=== PATIENT | female | born 1975 | race Caucasian/White ===

== ENCOUNTER 2019-09-27 14:31 | Emergency (ER) | payer OTHER, SELFPAY ==
[2019-09-27 14:46] VITALS: BP 118/87; PULSE 60; RESP 16; TEMP 36.6; O2SAT 100
--- NOTE | 2019-09-27 14:50 | ED.URI ---
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 Patient started to take Tylenol and ibuprofen was sent home from work. Related Data Home Medications Medication Instructions Recorded Confirmed hydrochlorothiazide 25 mg PO DAILY 09/27/19 09/27/19 levocetirizine [Xyzal] 5 mg PO DAILY 09/27/19 09/27/19 nebivolol [Bystolic] 10 mg PO DAILY 09/27/19 09/27/19 omeprazole magnesium [Prilosec OTC] 20 mg PO DAILY 09/27/19 09/27/19 potassium chloride 10 meq PO BID 09/27/19 09/27/19 simvastatin 20 mg PO DAILY 09/27/19 09/27/19 Allergies Allergy/AdvReac Type Severity Reaction Status Date / Time cefaclor Allergy Mild HIVES Verified 09/27/19 14:56 Sulfa (Sulfonamide Allergy Mild HIVES Verified 09/27/19 14:56 Antibiotics) Review of Systems Review of Systems: Narrative: CONSTITUTIONAL: D reports fever, chills, or sweats. EYES: Denies visual changes, redness, or discharge. ENT: Reports rhinorrhea, congestion, sore throat, or otalgia. CARDIOVASCULAR:Denies chest pain, palpitations, or edema. RESPIRATORY: Reports cough or dyspnea. GASTROINTESTINAL: Denies abdominal pain, nausea, vomiting, or diarrhea. GENITOURINARY: Denies dysuria or hematuria. SKIN:[Denies rash or itching. MUSCULOSKELETAL:Denies back pain, joint pain, or myalgia. NEUROLOGIC: Denies headache, numbness, or weakness. PSYCHIATRIC:Denies anxiety or depression PMFSH Social History Social History Gender identity (if verbalized by the patient): Female Comments At time as signature, I have reviewed and agree with nursing past medical, social, surgical and family history. Please see nursing chart for further information. There is no relevant family history pertinent to the presenting complaint. Exam Narrative: Exam Narrative: GENERAL:Well-appearing, well-nourished, and in no acute distress. Malaise HEAD:Normocephalic, atraumatic. EYES: PERRLA and EOMI. ENT: Nares clear, no rhinorrhea or epistaxis. Mucous membranes moist. Pharyngeal erythema postnasal drainage NECK: Supple. CHEST: Clear to auscultation. No respiratory distress. HEART: Regular rate and rhythm. No murmur heard. Normal peripheral pulses. ABDOMEN: Soft, nontender, nondistended, normal active bowel sounds. EXTREMITIES: Normal range of motion. No edema. SKIN: Warm, dry, no rash. NEURO: No focal deficits. Alert and oriented x3. Course Vital Signs Vital signs: Vital Signs Temperature 97.9 F 09/27/19 14:46 Pulse Rate 60 09/27/19 14:46 Respiratory Rate 16 09/27/19 14:46 Blood Pressure 118/87 09/27/19 14:46 Pulse Oximetry 100 09/27/19 14:46 Temperature 97.9 F 09/27/19 14:46 Pulse Rate 60 09/27/19 14:46 Respiratory Rate 16 09/27/19 14:46 Blood Pressure 118/87 09/27/19 14:46 Pulse Oximetry 100 09/27/19 14:46 MDM - URI/Sore Throat Lab Data Labs: Influenza A Screen Negative Reference Range: Negative Influenza B Screen Negative Reference Range: Negative Strep Screen Presumptive Negative *(Reference Range: Negative)* Discharge Plan Discharge Clinical Impression: Influenza-like illness Patient Disposition: Home, Self-Care Condition: Stable Instructions: Antibiotic Form, Influenza (ED) Additional Instructions: Viral illness may last between 7-12days; antibiotic is NOT recommended at this time. Recommend antihistamine such as Benadryl at night time and Claritin/Zyrtec/Sharon during the day Also, recommend symptomatic treatment includes: rest, fluids, and increase humidity of the air at home. Recommend Acetaminophen or nonsteroidal anti-inflammatory agents (NSAIDs) as directed in the bottle to reduce fever and
== END 2019-09-27 15:26 | disposition home or self-care (01) ==
PROVIDERS: Emergency Provider Nurse Practitioner Family
DX: J02.9 Acute pharyngitis, unspecified (principal); R51 Headache; J34.89 Other specified disorders of nose and nasal sinuses; R50.9 Fever, unspecified; E78.00 Pure hypercholesterolemia, unspecified; I10 Essential (primary) hypertension; K21.9 Gastro-esophageal reflux disease without esophagitis
CPT/HCPCS: 87081; 87804; 87880; 99213; G0463

== ENCOUNTER 2019-12-30 09:04 | Emergency (ER) | payer OTHER, SELFPAY ==
[2019-12-30 09:10] VITALS: BP 130/78; PULSE 62; RESP 16; TEMP 36.6; O2SAT 100
--- NOTE | 2019-12-30 09:19 | ED.GENADULT ---
HPI - General Adult General Chief complaint: Upper Respiratory Infection Stated complaint: sinus pressure Time Seen by Provider: 12/30/19 09:19 Source: patient and RN notes reviewed Mode of arrival: ambulatory Limitations: no limitations History of Present Illness HPI narrative: 44-year-old presents with upper respiratory infection, some facial congestion, facial pressure, and intermittent headache (not the worst of her life) for the past 14 days. Flonase and Zyrtec without relief. Symptoms increased over the last 24-48 hours. No facial swelling. Denies cough. Intermittent nasal congestion and rhinorrhea. Denies sore throat. No high fevers, drooling, neck or throat swelling. No voice change. No nausea, vomiting, or abdominal pain. Tolerating liquids well. Denies chills, dyspnea, difficulty swallowing, jaw pain, dental pain, foreign body sensation, and rash. No chest pain or shortness of breath. Denies being , LMP had endometrial ablation. The patient reports she have not been diagnosed with COVID-19. The patient reports she is not waiting for the results of a COVID-19 lab test. The patient reports she do not have fever, chills, weakness, fatigue, myalgia, or facial swelling. The patient reports she do not have a new or worsening cough or shortness of breath. Denies chest pain. The patient reports she do not have any sore throat, nausea, vomiting, abdominal pain, and diarrhea. Denies recent traveling. Denies concerns for COVID-19 or exposures been home since [id number] order except for essential household needs, working, and return home. At this time, patient is not suspected of having COVID-19. Some parts of this dictation were generated by voice recognition software and may contain typographical and/or grammatical inaccuracies. Related Data Home Medications Medication Instructions Recorded Confirmed hydrochlorothiazide 25 mg PO DAILY 09/27/19 09/27/19 nebivolol [Bystolic] 10 mg PO DAILY 09/27/19 09/27/19 omeprazole magnesium [Prilosec OTC] 20 mg PO DAILY 09/27/19 09/27/19 potassium chloride 10 meq PO BID 09/27/19 09/27/19 simvastatin 20 mg PO DAILY 09/27/19 09/27/19 cetirizine [Zyrtec] 10 mg PO DAILY 12/30/19 12/30/19 fluticasone propionate [Flonase 1 spray INTRANASAL BID 12/30/19 12/30/19 Allergy Relief] meloxicam 12/30/19 Allergies Allergy/AdvReac Type Severity Reaction Status Date / Time cefaclor Allergy Mild HIVES Verified 09/27/19 14:56 Sulfa (Sulfonamide Allergy Mild HIVES Verified 09/27/19 14:56 Antibiotics) Review of Systems Review of Systems: Narrative: CONSTITUTIONAL: Denies fever, chills, sweats. EYES: Denies visual changes, redness, discharge. ENT: Complains of rhinorrhea, congestion, facial congestion and pressure. Denies sore throat, otalgia. CARDIOVASCULAR: Denies chest pain, palpitations, edema. RESPIRATORY: Denies dyspnea, wheezing, cough. GASTROINTESTINAL: Denies abdominal pain, nausea, vomiting, diarrhea. GENITOURINARY: Denies dysuria, hematuria, abnormal discharge SKIN: Denies rash or itching. MUSCULOSKELETAL: Denies acute back pain, joint pain, or myalgia. NEUROLOGIC: Denies numbness, or focal weakness. Complains of intermittent NORIEGA. PSYCHIATRIC: Denies anxiety or depression. All other systems reviewed & are unremarkable except as noted in HPI and below. [facility] Past Medical History Medical History (Updated 12/30/19 @ 09:31 by PAIGE Snell) History of gastroesophageal reflux (GERD) Hypercholesteremia Hypertension Surgical History Surgical History (Updated 12/30/19 @ 09:29 by PAIGE Snell) History of dental surgery History of endometrial ablation History of knee surgery RT ACL History of shoulder surgery LT AC separation History of tonsillectomy Family History Family History (Updated 12/30/19 @ 09:30 by PAIGE Snell) Father Hypertension Mother Hypertension Social History Social History (Updated 12/30/19 @ 09:30 by
== END 2019-12-30 09:46 | disposition home or self-care (01) ==
PROVIDERS: Emergency Provider Nurse Practitioner Family
DX: J01.00 Acute maxillary sinusitis, unspecified (principal); I10 Essential (primary) hypertension
CPT/HCPCS: 99213; G0463

== ENCOUNTER 2022-05-03 13:23 | Emergency (ER) | payer OTHER, SELFPAY ==
[2022-05-03 13:42] VITALS: BP 135/88; PULSE 67; RESP 16; TEMP 36.3; O2SAT 100
[2022-05-03 14:01] VITALS: BP 135/88; PULSE 67; RESP 16; TEMP 36.3; O2SAT 100
--- NOTE | 2022-05-03 14:53 | ED.WOUNDLAC ---
HPI - Wound/Laceration General Chief Complaint: Wound/Laceration Stated Complaint: lac on left ring finger Time Seen by Provider: 05/03/22 14:15 Source: patient, RN notes reviewed and old records reviewed Mode of arrival: ambulatory Limitations: no limitations History of Present Illness HPI narrative: 46 year old female who presents to [facility] with complaints of avulsion of skin tissue from the medial distal tip of left ring finger which occurred at home about 1145 today. Patient states she had taken her shower head down to soak in vinegar and somehow cut her finger. Patient reports that she tried to get finger to stop bleeding for 2 hours at home unsuccessfully so came to clinic. Onset (ago): hour(s) (1145 today) Location: other (left ring finger distal medial aspect) Place: home Patient tetanus UTD: Yes Treatments prior to arrival: bandage Related Data Home Medications Medication Instructions Recorded Confirmed hydrochlorothiazide 25 mg tablet 25 mg PO DAILY 09/27/19 05/03/22 nebivolol 10 mg tablet (Bystolic) 10 mg PO DAILY 09/27/19 05/03/22 potassium chloride 10 mEq 10 meq PO BID 09/27/19 05/03/22 tablet,extended release simvastatin 20 mg tablet 20 mg PO DAILY 09/27/19 05/03/22 fluticasone propionate 50 1 spray intranasal BID 12/30/19 05/03/22 mcg/actuation nasal spray,suspension (Flonase Allergy Relief) Allergies Allergy/AdvReac Type Severity Reaction Status Date / Time cefaclor Allergy Mild HIVES Verified 05/03/22 14:00 Sulfa (Sulfonamide Allergy Mild HIVES Verified 05/03/22 14:00 Antibiotics) Review of Systems Review of Systems: CONSTITUTIONAL: Denies fever, chills, or sweats. CARDIOVASCULAR: Denies chest pain, palpitations, or edema. RESPIRATORY: Denies cough or dyspnea. SKIN: Reports avulsion of skin at the distal medial tip left ring finger with excessive bleeding MUSCULOSKELETAL: Denies musculoskeletal pain NEUROLOGIC: Denies numbness, or weakness. All systems reviewed & are unremarkable except as noted in HPI and below PMFSH Past Medical History Medical History History of gastroesophageal reflux (GERD) Hypercholesteremia Hypertension Surgical History Surgical History History of dental surgery History of endometrial ablation History of knee surgery RT ACL History of shoulder surgery LT AC separation History of tonsillectomy Family History Family History Father Hypertension Mother Hypertension Social History Social History Smoking status: Never smoker Tobacco type: cigarettes Second hand tobacco smoke exposure: No Alcohol intake: current Substance use: never Gender identity (if verbalized by the patient): Female Comments At time of signature, agree with nursing past medical, surgical, social and family history. There is no relevant family history pertinent to the presenting complaint Exam Narrative: GENERAL: Well-appearing, well-nourished, and in no acute distress. HEAD: Normocephalic, atraumatic. NECK: Supple. no lymphadenopathy CHEST: Clear to auscultation. No respiratory distress.SAO2 100% on room air HEART: Regular rate and rhythm. No murmur heard. Normal peripheral pulses EXTREMITIES: Normal range of motion. No edema. SKIN: Warm, dry, no rash. Reports 0.5cm left distal medial ring finger avulsion type of wound with excessive bleeding, pressure dressing attempted to stop bleeding unsuccessful NEURO: No focal deficits. Alert and oriented x3. Course Course Level of Care: Express Care Visit Vital Signs Vital signs: Vital Signs Temperature 36.3 C L 05/03/22 13:42 Pulse Rate 67 05/03/22 13:42 Respiratory Rate 16 05/03/22 13:42 Blood Pressure 135/88 05/03/22 13:42 Pulse Oximetry 100 05/03/22 13:42 Oxygen
== END 2022-05-03 15:12 | disposition home or self-care (01) ==
PROVIDERS: Emergency Provider Registered Nurse; PCP Internal Medicine
DX: S61.205A Unspecified open wound of left ring finger without damage to nail, initial encounter (principal); W45.8XXA Other foreign body or object entering through skin, initial encounter; K21.9 Gastro-esophageal reflux disease without esophagitis; E78.00 Pure hypercholesterolemia, unspecified; I10 Essential (primary) hypertension
CPT/HCPCS: 99212; G0463

== ENCOUNTER 2023-07-09 16:15 | Emergency (ER) | payer OTHER, SELFPAY ==
[2023-07-09 16:23] VITALS: BP 143/85; PULSE 68; RESP 16; TEMP 36; O2SAT 96
--- NOTE | 2023-07-09 16:34 | ED.GENADULT ---
HPI - General Adult General Chief complaint: Upper Respiratory Infection Stated complaint: Congestion/Cough Source: patient, RN notes reviewed and old records reviewed Mode of arrival: ambulatory Limitations: no limitations History of Present Illness HPI narrative: 47-year-old female presents to [facility] with complaints cough, congestion, sinus pressure, fatigue, sore throat this started 06/29/2023. Patient taking [id number] medications with no relief. Patient states is now coughing up thick green phlegm and having green sinus drainage. Patient denies chest pain, shortness of breath, dizziness, weakness, vomiting. MD complaint: Cough/congestion Onset (ago): day(s) () Related Data Home Medications Medication Instructions Recorded Confirmed hydrochlorothiazide 25 mg tablet 25 mg PO DAILY 09/27/19 05/03/22 nebivolol 10 mg tablet (Bystolic) 10 mg PO DAILY 09/27/19 05/03/22 potassium chloride 10 mEq 10 meq PO BID 09/27/19 05/03/22 tablet,extended release simvastatin 20 mg tablet 20 mg PO DAILY 09/27/19 05/03/22 fluticasone propionate 50 1 spray intranasal BID 12/30/19 05/03/22 mcg/actuation nasal spray,suspension (Flonase Allergy Relief) Allergies Allergy/AdvReac Type Severity Reaction Status Date / Time cefaclor Allergy Mild HIVES Verified 05/03/22 14:00 Sulfa (Sulfonamide Allergy Mild HIVES Verified 05/03/22 14:00 Antibiotics) Review of Systems Constitutional: Constitutional: Reports as per HPI, Reports body ache(s), Denies chills, Reports fatigue, Denies fever(s) and Reports headache(s) Eyes: Eyes: Reports no additional eye complaints and Denies blurry vision ENT: Reports as per HPI, Denies vertigo, Denies dizziness, Denies ear discharge, Denies otalgia, Denies facial pain, Denies headache(s), Reports nasal congestion, Reports nasal discharge, Reports sinus pain, Reports sinus pressure and Reports sore throat Cardiovascular: Cardiovascular: Reports no additional cardiovascular complaints, Denies chest pain, Denies chest pain at rest, Denies rapid heart rate and Denies dyspnea Respiratory: Respiratory: Reports as per HPI, Reports chest congestion, Reports cough, Denies pain on inspiration, Denies pain with cough and Denies dyspnea Gastrointestinal: Gastrointestinal: Denies abdominal pain, Denies diarrhea, Denies nausea and Denies vomiting Integumentary/Breasts: Skin/Breast: Denies rash Neurologic: Reports system reviewed and no additional complaints, except as documented, Denies vertigo, Denies dizziness and Denies headache(s) Endocrine: Endocrine: Denies fatigue PMFSH Past Medical History Medical History History of gastroesophageal reflux (GERD) Hypercholesteremia Hypertension Surgical History Surgical History History of dental surgery History of endometrial ablation History of knee surgery RT ACL History of shoulder surgery LT AC separation History of tonsillectomy Family History Family History Father Hypertension Mother Hypertension Social History Social History Smoking status: Never smoker Tobacco type: cigarettes Second hand tobacco smoke exposure: No Alcohol intake: current Substance use: never Living arrangements: with family Occupation/Education: occupation Gender identity (if verbalized by the patient): Female Comments At the time of my signature, I reviewed and agree with the nursing past medical, surgical, social, and family history. There is no relevant family history pertinent to the patient complaint. Exam Const: General: cooperative, healthy appearing, no acute distress and well nourished Nutritional Appearance: well nourished Orientation/consciousness: patient oriented x3 Limitations: no limitations HENMT:
== END 2023-07-09 16:47 | disposition home or self-care (01) ==
PROVIDERS: Emergency Provider Registered Nurse
DX: J01.90 Acute sinusitis, unspecified (principal); K21.9 Gastro-esophageal reflux disease without esophagitis; E78.00 Pure hypercholesterolemia, unspecified; I10 Essential (primary) hypertension
CPT/HCPCS: 87081; 87880; 99213; G0463

== ENCOUNTER 2023-07-13 10:52 | Emergency (ER) | payer OTHER, SELFPAY ==
--- NOTE | ~2023-07-13 | XR_ITS ---
Clinical Indication: Cough PA and lateral views of the chest: Comparison: None Findings: The lungs are clear, without evidence of focal consolidation or pleural effusion. Cardiome diastinal silhouette is within normal limits. Bones and soft tissues are unremarkable. Impression: Normal chest. Reviewed, dictated and finalized at location . AGE ATTENDANT Impression: Normal chest.
[2023-07-13 11:00] VITALS: BP 152/96; PULSE 66; RESP 18; TEMP 36.2; O2SAT 98
--- NOTE | 2023-07-13 11:47 | ED.GENADULT ---
HPI - General Adult General Chief complaint: Upper Respiratory Infection Stated complaint: Bronchitis follow up Source: patient Mode of arrival: ambulatory Limitations: no limitations History of Present Illness HPI narrative: Patient presents for evaluation of sick symptoms since 06/29/2023. She reports sinus congestion, thick yellow-green drainage from the nares and cough. Cough is productive in the morning but is nonproductive throughout the day. She was evaluated here on 06/29/2023 was given a prescription for Augmentin which she has been taking as directed. Two coworkers have similar symptoms in her both on doxycycline. She does not smoke. She has taken some nyquil for her symptoms without much improvement. No fever, chills, nausea, vomiting. Related Data Home Medications Medication Instructions Recorded Confirmed hydrochlorothiazide 25 mg tablet 25 mg PO DAILY 09/27/19 07/13/23 nebivolol 10 mg tablet (Bystolic) 10 mg PO DAILY 09/27/19 07/13/23 potassium chloride 10 mEq 10 meq PO BID 09/27/19 07/13/23 tablet,extended release simvastatin 20 mg tablet 20 mg PO DAILY 09/27/19 07/13/23 fluticasone propionate 50 1 spray intranasal BID 12/30/19 07/13/23 mcg/actuation nasal spray,suspension (Flonase Allergy Relief) Allergies Allergy/AdvReac Type Severity Reaction Status Date / Time cefaclor Allergy Mild HIVES Verified 07/13/23 11:12 Sulfa (Sulfonamide Allergy Mild HIVES Verified 07/13/23 11:12 Antibiotics) Review of Systems Review of Systems: CONSTITUTIONAL: Denies fever, chills, or sweats. EYES: Denies visual changes, redness, or discharge. ENT: Reports sinus congestion and thick green yellow drainage from the nares. Denies sore throat or otalgia. CARDIOVASCULAR: Denies chest pain, palpitations, or edema. RESPIRATORY: Reports cough. Denies shortness of breath GASTROINTESTINAL: Denies abdominal pain, nausea, vomiting, or diarrhea. GENITOURINARY: Denies dysuria or hematuria. SKIN: Denies rash or itching. MUSCULOSKELETAL: Denies back pain, joint pain, or myalgia. NEUROLOGIC: Denies headache, numbness, dizziness, or weakness. PSYCHIATRIC: Denies anxiety or depression. [facility] Past Medical History Medical History History of gastroesophageal reflux (GERD) Hypercholesteremia Hypertension Surgical History Surgical History History of dental surgery History of endometrial ablation History of knee surgery RT ACL History of shoulder surgery LT AC separation History of tonsillectomy Family History Family History Father Hypertension Mother Hypertension Social History Social History Smoking status: Never smoker Tobacco type: cigarettes Second hand tobacco smoke exposure: No Alcohol intake: current Substance use: never Living arrangements: with family Occupation/Education: occupation Gender identity (if verbalized by the patient): Female Exam Narrative: GENERAL: Well-appearing, well-nourished, and in no acute distress. HEAD: Normocephalic, atraumatic. EYES: PERRLA and EOMI. ENT: Nares clear, no rhinorrhea or epistaxis. Mucous membranes moist. Oropharynx without tonsillar hypertrophy exudate or other lesions. Bilateral TMs pearly gorman nonbulging NECK: Supple. No adenopathy or masses. No carotid bruits or JVD CHEST: Clear to auscultation. No respiratory distress. No wheezes rales or rhonchi HEART: Regular rate and rhythm. No murmur heard. Normal peripheral pulses. ABDOMEN: Soft, nontender, nondistended, normal active bowel sounds. EXTREMITIES: Normal range of motion. No edema. SKIN: Warm, dry, no rash. NEURO: No focal deficits. Alert and oriented x3. PSYCH: Normal mood and affect. Course Course Emergency Course:
== END 2023-07-13 11:49 | disposition home or self-care (01) ==
PROVIDERS: Emergency Provider Nurse Practitioner
DX: J01.90 Acute sinusitis, unspecified (principal); B96.89 Other specified bacterial agents as the cause of diseases classified elsewhere; I10 Essential (primary) hypertension; Z79.899 Other long term (current) drug therapy; Z20.822 Contact with and (suspected) exposure to COVID-19
CPT/HCPCS: 71046; 87426; 87804; 99213; C9803; G0463

== ENCOUNTER 2024-04-19 16:41 | Emergency (ER) | payer OTHER, SELFPAY ==
[2024-04-19 16:56] VITALS: BP 126/81; PULSE 83; RESP 20; TEMP 36.6; O2SAT 98
--- NOTE | 2024-04-19 17:06 | ED.URI ---
HPI - URI/Sore Throat General Chief Complaint: Upper Respiratory Infection Stated Complaint: cough/poss bronchitis Time Seen by Provider: 04/19/24 17:00 Source: patient Mode of arrival: ambulatory Limitations: no limitations History of Present Illness HPI Narrative: 48y/o female presented for complaint of cough for 1 week. States symptoms started with nasal congestion and drainage which have improved. Cough is keeping her up at night. cough is productive at night and in the morning. She has taken [id number] cough medicine without relief. She denies shortness of breath, wheezing vomiting diarrhea fevers or chills. Related Data Home Medications Medication Instructions Recorded Confirmed hydrochlorothiazide 25 mg tablet 25 mg PO DAILY 09/27/19 04/19/24 nebivolol 10 mg tablet (Bystolic) 10 mg PO DAILY 09/27/19 04/19/24 simvastatin 20 mg tablet 20 mg PO DAILY 09/27/19 04/19/24 fluticasone propionate 50 1 spray intranasal BID 12/30/19 07/13/23 mcg/actuation nasal spray,suspension (Flonase Allergy Relief) meloxicam 15 mg tablet 15 mg PO DAILY 04/19/24 04/19/24 omeprazole 20 mg capsule,delayed 20 mg PO DAILY 04/19/24 04/19/24 release tirzepatide (weight loss) 10 See Rx Instructions .Route .COMPLEX 04/19/24 04/19/24 mg/0.5 mL subcutaneous pen injector (Zepbound) Allergies Allergy/AdvReac Type Severity Reaction Status Date / Time cefaclor Allergy Mild HIVES Verified 04/19/24 17:10 Sulfa (Sulfonamide Allergy Mild HIVES Verified 04/19/24 17:10 Antibiotics) Review of Systems Review of Systems: CONSTITUTIONAL: Denies body aches, fever, chills, or sweats. EYES: Denies visual changes, redness, or discharge. ENT: Denies rhinorrhea, congestion, sore throat, or otalgia. CARDIOVASCULAR: Denies chest pain, palpitations, or edema. RESPIRATORY: Reports cough, denies sob, wheezing. GASTROINTESTINAL: Denies abdominal pain, nausea, vomiting, or diarrhea. SKIN: Denies rash, itching, or wounds. MUSCULOSKELETAL: Denies back pain, joint pain, or myalgia. NEUROLOGIC: Denies headache, numbness, tingling, or weakness. All systems reviewed & are unremarkable except as noted in HPI and below PMFSH Past Medical History Medical History History of gastroesophageal reflux (GERD) Hypercholesteremia Hypertension Surgical History Surgical History History of dental surgery History of endometrial ablation History of knee surgery RT ACL History of shoulder surgery LT AC separation History of tonsillectomy Family History Family History Father Hypertension Mother Hypertension Social History Social History Smoking status: Never smoker Tobacco type: cigarettes Second hand tobacco smoke exposure: No Alcohol intake: current Substance use: never Living arrangements: with family Occupation/Education: occupation Gender identity (if verbalized by the patient): Female Comments At time of signature, I have reviewed and agree with nursing past medical, surgical, social and family history unless otherwise noted. Please see nursing chart for further information. There is no relevant family history pertinent to the presenting complaint Exam Narrative: GENERAL: Well-appearing, in no acute distress. EYES: EOMI. No redness or drainage. Conjunctivae normal. ENT: Mucous membranes pink and moist. No rhinorrhea. TMs normal bilaterally. Throat normal. Uvula midline. NECK: Normal AROM. Supple. CHEST: No respiratory distress. Lungs clear to all castillo. Frequent nonproductive cough HEART: Regular rate and rhythm. No murmur appreciated. ABDOMEN: Soft, nontender, nondistended, normal active bowel sounds. SKIN: Warm, dry, no rash. Capillary refill normal. Normal skin turgor. NEURO:
== END 2024-04-19 17:15 | disposition home or self-care (01) ==
PROVIDERS: Emergency Provider Nurse Practitioner Family
DX: J40 Bronchitis, not specified as acute or chronic (principal); K21.9 Gastro-esophageal reflux disease without esophagitis; E78.00 Pure hypercholesterolemia, unspecified; I10 Essential (primary) hypertension
CPT/HCPCS: 99213; G0463